=== PATIENT | female | born 2005 | race Caucasian/White ===

== ENCOUNTER 2024-08-21 06:17 | Day surgery (SDC) | payer BC, SELFPAY | END 2024-08-21 14:41 | disposition home or self-care (01) | LOC: GI 06:17 | PROVIDERS: ATTENDING PHYSICIAN Internal Medicine | DX: R10.84 Generalized abdominal pain (principal); K29.50 Unspecified chronic gastritis without bleeding | CPT/HCPCS: 43239; 88305; 88342 ==